=== PATIENT | male | born 1985 | race Caucasian/White ===

== ENCOUNTER 2016-10-10 10:35 | Emergency (ER) | payer MEDICAID ==
[~2016-10-10] VITALS: Ht 175.3 cm; Wt 84.0 kg
[2016-10-10 10:50] VITALS: BP 135/89
[2016-10-10] MEDS ORDERED: HYDROcodone/APAP 10/325 MG TABLET PO STA (11:25)
[2016-10-10] MEDS ORDERED: HYDROcodone/APAP 10/325 MG TABLET ONE (11:36)
== END 2016-10-10 13:07 | disposition home or self-care (01) ==
LOC: ED 13:01
DX: S50.01XA Contusion of right elbow, initial encounter (principal); F17.210 Nicotine dependence, cigarettes, uncomplicated; V29.9XXA Motorcycle rider (driver) (passenger) injured in unspecified traffic accident, initial encounter; Y99.8 Other external cause status; Y93.89 Activity, other specified; Y92.830 Public park as the place of occurrence of the external cause
CPT/HCPCS: 99284

== ENCOUNTER 2019-06-24 09:01 | Emergency (ER) | payer MEDICAID ==
[~2019-06-24] VITALS: Ht 180.3 cm; Wt 89.3 kg
[2019-06-24 09:03] VITALS: BP 134/87
--- NOTE | 2019-06-24 09:13 | NUR ---
PT AMBULATORY WITH STEADY GAIT TO ROOM. CATHYN
== END 2019-06-24 09:59 | disposition home or self-care (01) ==
LOC: ED 09:33
DX: K02.9 Dental caries, unspecified (principal); K08.89 Other specified disorders of teeth and supporting structures
CPT/HCPCS: 99283